=== PATIENT | female | born 1945 | race Two or more races ===

== ENCOUNTER 2025-01-19 18:38 | Emergency (ER) | payer SELFPAY, MEDICAID ==
[~2025-01-19] VITALS: Ht 152.4 cm; Wt 55.0 kg
--- NOTE | 2025-01-19 18:55 | ECG ---
[facility] Test Date: 2025-01-19 Test Time: 18:47:29 Pat Name: BRIAN HENRIQUEZ Department: Room: Gender: F Employee Benefits Administrator: DAVE : 1945 Requested By: VIPUL NGUYEN Order Number: [id number] Reading MD: Measurements Intervals Power Rate: 80 P: 63 [place]: 134 QRS: 19 QRSD: 91 T: 71 QT: 396 QTc: 457 Interpretive Statements Sinus rhythm Low voltage, precordial leads Please click the below link to view image of tracing.
--- NOTE | 2025-01-19 19:24 | ED.PDOC ---
GI ASSESSMENT HPI Comments HPI: Lauro 79 y.o female accompanied by daughter in law, presents to the ED for a chief complaint of diffused abdominal pain associated with nausea and vomiting that started 2 weeks ago. Patient reports pain is constant and has no alleviating or precipitating factors. Patient states recently being placed on jardiance due to hx of DM. Patient denies any diarrhea, fever, chills, chest pain, SOB. Vitals Temp: 98.3F HR: 79 BP: 135/68 RR: 16 SPO2: 98% RA Past Medical history: Acid reflux, hiatal hernia Past Surgical history: hernia repair and cholecystectomy Social History: Denies smoking, ETOH, and drug use. Allergies: NKA HPI: Poor Historian. REVIEW OF SYSTEMS: CONSTITUTIONAL: Denies acute: fever, diaphoresis, chills, HEAD: Denies acute: headache, photophobia Eyes: Denies acute: Double vision, vision loss, eye pain, eye discharge. EARS: Denies acute: tinnitus, hearing loss, ear discharge, ear pain, THROAT: Denies acute: sore throat, swelling, difficulty swallowing , pain with swallowing, change in voice. NECK: Denies acute: neck pain, neck swelling, stiff neck. HEART: Denies acute : chest pain, palpitations, LUNGS: Denies acute: SOB, wheezing, cough, hemoptysis ABDOMEN: Denies acute: diarrhea, melena , hematemesis, hematochezia SKIN: Denies acute: rash, redness, lesions, itchiness. EXTREMITIES: Denies acute: calf pain, numbness, tingling, weakness, denies pain in extremity. Denies acute: Low back pain. Neuro: Denies acute: focal neurological deficit, motor or sensory focal neurological deficit, tremors, seizure like activity, confusion, dizziness, change in mental status, loss of bowel or bladder function, cauda equina like symptoms. : Denies acute: dysuria, hematuria, flank pain, increase in urinary frequency. PSYCH: Denies acute: hallucination, suicidal ideation, homicidal ideation. FEMALE: Denies acute: abnormal vaginal bleeding, foul odor, unusual discharge. PHYSICAL EXAM: General: -----mild---acute distress, awake and alert. Head: normocephalic, atraumatic. Neck: supple, trachea is midline, no swelling. Throat: Normal phonation. Eyes:, no erythema, no purulent discharge, no proptosis, no icterus. Heart: regular rate, regular rhythm, no significant murmur appreciated. Lungs: no apparent respiratory distress, Able to speak in full sentences. No wheezing, no rhonchi, no crackles. No stridors Clear to auscultation bilaterally. Abdomen: Nonspecific mild upper abdominal tender to palpation, non distended, soft, no guarding, no rebound, + bowel sounds. Neuro: Awake, Alert, oriented to name, self, situation, follows commands GCS=15. Speech is normal. Skin: no petechia, no purpura, no cyanosis, non-pale, not jaundice. Lower extremities: --no - Pitting edema no deformity, no focal swelling, no calf TTP. Makes eye contact. moves all four extremities. Face: no apparent facial droop. Ambulating in the ED independently. ED COURSE: DISCLAIMER: This medical document was created using an electronic medical record system with voice recognition software and computerized dictation system. Although this document has been carefully reviewed, there might still be some phonetic and typographical errors. Occasional wrong-word or "sound-alike" substitutions may have occurred due to the inherent limitations of voice recognition software. These areas are purely typographical due to imperfections of the software [employer] and do not reflect any compromise in the patient's medical care. Please read the chart carefully and recognize, using context, where these substitutions have occurred. 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 Was a procedure done?: No GI differential Dx Differential Diagnosis: Esophagitis, Gastritis/PUD, Gastroenteritis, Inflammatory BD, Viral X-Ray, Labs, Meds, VS Vital Signs Date Time Temp Pulse Resp B/P (MAP) Pulse Ox O2 Delivery O2 Flow Rate FiO2 01/19/25 18:47 80 01/19/25 18:40 98.3 79 16 135/68 98 98.3 Lab Test 01/19/25 20:01 01/19/25 19:37 Range/Units Urine Color Light-yellow Yellow Urine Clarity Clear Clear Urine pH 6.5 5.0-9.0 Urine Specific [place] 1.012 1.001-1.035 Urine Protein Negative Negative Urine Ketones Negative Negative Urine Blood Negative Negative /uL Urine Nitrite Negative Negative Urine Bilirubin Negative Negative Urine Urobilinogen Normal Negative mg/dL Urine Leukocyte Esterase 2+ Negative /uL Urine RBC 1 0 - 4 /hpf Urine Microscopic WBC 4 0-5 /HPF Urine Squamous Epithelial Cells Few <5 /hpf Urine Bacteria None seen None Seen /hpf Urine Glucose 4+ H Normal mg/dL White Blood Count 5.0 4.4-10.8 10^3/uL Red Blood Count 4.90 4.0-5.20 10^6/uL Hemoglobin 15.4 12.2-16.2 g/dL Hematocrit 44.8 36.0-46.0 % Mean Corpuscular Volume 91.4 80.0-100.0 fL Mean Corpuscular Hemoglobin 31.5 28.0-32.0 pg Mean Corpuscular Hemoglobin Concent 34.4 32.0-36.0 g/dL Red Cell Distribution Width 12.9 11.8-14.3 % Platelet Count 178 140-450 10^3/uL Mean Platelet Volume 8.7 6.9-10.8 fL Neutrophils (%) (Auto) 49.8 37.0-80.0 % Lymphocytes (%) (Auto) 39.4 10.0-50.0 % Monocytes (%) (Auto) 7.0 0.0-12.0 % Eosinophils (%) (Auto) 2.8 0.0-7.0 % Basophils (%) (Auto) 1.0 0.0-2.0 % Neutrophils # (Auto) 2.5 1.6-8.6 10 ^3/uL Lymphocytes # (Auto) 2.0 0.4-5.4 10 ^3/uL Monocytes # (Auto) 0.3 0-1.3 10 ^3/uL Eosinophils # (Auto) 0.1 0-0.8 10 ^3/uL Basophils # (Auto) 0 0-0.2 10 ^3/uL Nucleated Red Blood Cells 0.1 % Sodium Level 140 136-145 mmol/L Potassium Level 3.7 3.5-5.1 mmol/L Chloride Level 105 98-107 mmol/L Carbon Dioxide Level 26 20-31 mmol/L Anion Gap 9 5-15 Blood Urea Nitrogen 14 9-23 mg/dL Creatinine 0.74 0.550-1.02 mg/dL Glomerular Filtration Rate Calc 83 >90 mL/min BUN/Creatinine Ratio 18.9 10.0-20.0 Serum Glucose 209 H 74-106 mg/dL Lactic Acid Level 1.4 0.4-2.0 mmol/L Calcium Level 8.6 L 8.7-10.4 mg/dL Total Bilirubin 0.4 0.2-1.0 mg/dL Aspartate Amino Transferase (AST) 18 13-40 U/L Alanine Aminotransferase (ALT) 15 7-40 U/L Alkaline Phosphatase 95 46-116 U/L Troponin I High Sensitivity < 3 L </=34 ng/L Total Protein 6.4 5.7-8.2 g/dL Albumin 4.2 3.2-4.8 g/dL Lipase 38 12-53 U/L [place] [address] Ph: [phone] DIAGNOSTIC IMAGING Diagnostic Imaging Report : [id number] Signed PATIENT: BRIAN HENRIQUEZ ACCT: [id number] UNIT: [id number] : 1945 LOC: ER ROOM / BED: / AGE / SEX: 79 / F ADM STATUS: REG ER SERVICE [id number] ORDERING PHYSICIAN: TERENCE KEANE DO PROCEDURE(s): ABPL - CT AB PEL WO CON-NO ORAL OR IV REASON: abd pain n/v ORDER NUMBER(s): [id number], ACCESSION NUMBER(s): [id number] Exam: CT CT AB PEL WO CON-NO ORAL OR IV History: abd pain n/v Comparison Study: None Technique: Multidetector spiral CT of the abdomen was performed from lung bases to pubic symphysis. Imaging was performed without IV contrast. Axial, coronal and sagittal multiplanar reformats were obtained from the axial data set by the technologist. Radiation dose : 1. Abdomen/Pelvis: CTDIvol 5.49 mGy, DLP 5.49 mGy*cm. Findings: Evaluation of solid organs is limited due to lack of intravenous contrast use. There is bronchial thickening. 5.1 cm caudate cyst. Status post cholecystectomy. The pancreas, spleen, adrenal glands, and kidneys are within normal limits. Uterus and adnexa are unremarkable. The stomach and small bowel within normal limits. The appendix is not visualized.: The colon is unremarkable. Minimal atherosclerotic calcifications. Mild sacroiliac joint degenerative change. Minimal degenerative changes within the lumbar spine. IMPRESSION: 1. No acute abdominal or pelvic findings. 2. 5.1 cm caudate lobe hepatic cyst Radiation optimization: All CT scans at this facility use at least one of these dose optimization techniques: automated exposure control mA and/or kV adjustment per patient size (includes targeted exams where dose is matched to clinical indication) or iterative reconstruction. ATED BY: SHRAVAN ZAMUDIO MD DICTATED DATE/TIME: 01/19/251954 SIGNED BY: SHRAVAN ZAMUDIO MD SIGNED DATE/TIME: 01/19/251954 CC: Time of 1ST Reevaluation: 19:10 Reevaluation 1ST: Unchanged Patient Education/Counseling: Diagnosis, Treatment Family Education/Counseling: Diagnosis, Treatment Departure 1 Departure Time of Disposition: 20:48 Impression: Primary Impression: Abdominal pain Additional Impressions: Medication adverse effect UTI (urinary tract infection) Hepatic cyst Disposition: 01 HOME / SELF CARE / HOMELESS Condition: Stable Additional Instructions: Additional instructions: You MUST follow-up with your primary care/family doctor in 1 to 2 days. If you are unable to see your primary care/family doctor, please return to our emergency room for re-assessment and re-evaluation in 1 to 2 days. Return to the emergency room here in our facility or to the nearest ER [facility] if your symptoms change or worsen. CONSULTATIONS: you MUST Follow-up for consultation as soon as possible with: -gastroenterology and endocrinology in 1-2 days. Please call for appointment. You MUST call the consultants office yourself to make an appointment. You may need to arrange that through your insurance and/or your primary/family doctor. If you are unable to see the travel sales consultant in 1 to 2 days, you must return to our emergency room (or any other ER of your choice) for re-assessment and re- evaluation. Adequate fluid hydration. Avoid fatty greasy spicy food. Avoid caffeinated products. Avoid NSAIDs. Below is a copy of your radiological report for follow up: [place] [address] Ph: [phone] DIAGNOSTIC IMAGING Diagnostic Imaging Report : [id number] Signed PATIENT: BRIAN HENRIQUEZ ACCT: [id number] UNIT: [id number] : 1945 LOC: ER ROOM / BED: / AGE / SEX: 79 / F ADM STATUS: REG ER SERVICE 57 ORDERING PHYSICIAN: TERENCE KEANE DO PROCEDURE(s): ABPL - CT AB PEL WO CON-NO ORAL OR IV REASON: abd pain n/v ORDER NUMBER(s): [id number], ACCESSION NUMBER(s): [id number] Exam: CT CT AB PEL WO CON-NO ORAL OR IV History: abd pain n/v Comparison Study: None Technique: Multidetector spiral CT of the abdomen was performed from lung bases to pubic symphysis. Imaging was performed without IV contrast. Axial, coronal and sagittal multiplanar reformats were obtained from the axial data set by the technologist. Radiation dose : 1. Abdomen/Pelvis: CTDIvol 5.49 mGy, DLP 5.49 mGy*cm. Findings: Evaluation of solid organs is limited due to lack of intravenous contrast use. There is bronchial thickening. 5.1 cm caudate cyst. Status post cholecystectomy. The pancreas, spleen, adrenal glands, and kidneys are within normal limits. Uterus and adnexa are unremarkable. The stomach and small bowel within normal limits. The appendix is not visualized.: The colon is unremarkable. Minimal atherosclerotic calcifications. Mild sacroiliac joint degenerative change. Minimal degenerative changes within the lumbar spine. IMPRESSION: 1. No acute abdominal or pelvic findings. 2. 5.1 cm caudate lobe hepatic cyst Radiation optimization: All CT scans at this facility use at least one of these dose optimization techniques: automated exposure control mA and/or kV adjustment per patient size (includes targeted exams where dose is matched to clinical indication) or iterative reconstruction. ATED BY: SHRAVAN ZAMUDIO MD DICTATED DATE/TIME: 01/19/251954 SIGNED BY: SHRAVAN ZAMUDIO MD SIGNED DATE/TIME: 01/19/251954 CC: e-Prescriptions Ondansetron Odt 4MG Tab (ZOFRAN PO) 4 Mg Tb 4 MG PO Q8HPRN PRN for 3 Days, #9 TAB ODT TAB-DISSOLVE IN MOUTH, THEN SWALLOW Prov: TERENCE KEANE DO 01/19/25 Nitrofurantoin Monohydrate Mac (Macrobid) 100 Mg Cap 100 MG PO BID for 7 Days, #14 CAP Prov: TERENCE KEANE DO 01/19/25 Discharged With: Self Critical Care Note Critical Care Time?: No I personally scribed for TERENCE KEANE DO ([email or web address]) on 01/19/25 at 19:24. Electronically submitted by Arielle Smith ([facility]). I personally scribed for TERENCE KEANE DO ([email or web address]) on 01/19/25 at 20:18. Electronically submitted by Arielle Smith ([facility]). I personally scribed for TERENCE KEANE DO ([email or web address]) on 01/19/25 at 20:57. Electronically submitted by Arielle Smith ([facility]). TERENCE KEANE DO Jan 19, 2025 19:24
[2025-01-19 19:48] LABS: Hematocrit 44.8 % (36.0-46.0); Hemoglobin 15.4 g/dL (12.2-16.2); Mean Corpuscular Hemoglobin 31.5 pg (28.0-32.0); Mean Corpuscular Volume 91.4 fL (80.0-100.0); Nucleated Red Blood Cells % 0.1 %
--- NOTE | 2025-01-19 19:57 | DVH ---
Exam: CT CT AB PEL WO CON-NO ORAL OR IV History: abd pain n/v Comparison Study: None Technique: Multidetector spiral CT of the abdomen was performed from lung bases to pubic symphysis. Imaging was performed without IV contrast. Axial, coronal and sagittal multiplanar reformats were ob tained from the axial data set by the technologist. Radiation dose : 1. Abdomen/Pelvis: CTDIvol 5.49 mGy, DLP 5.49 mGy*cm. Findings: Evaluation of solid organs is limited due to lack of intravenous contrast use. There is bronchial thickening. 5.1 cm caudate cyst. Status post cholecystectomy. The pancreas, spleen, adrenal glands, and kidneys are within normal limits. Uterus and adnexa are unr emarkable. The stomach and small bowel within normal limits. The appendix is not visualized.: The colon is unrem arkable. Minimal atherosclerotic calcifications. Mild sacroiliac joint degenerative change. Minimal degenerati ve changes within the lumbar spine. IMPRESSION: 1. No acute abdominal or pelvic findings. 2. 5.1 cm caudate lobe hepatic cyst Radiation optimization: All CT scans at this facility use at least one of these dose optimization sarah hniques: automated exposure control mA and/or kV adjustment per patient size (includes targeted exam s where dose is matched to clinical indication) or iterative reconstruction.
[2025-01-19 20:14] LABS: Alanine Aminotransferase 15 U/L (7-40); Albumin 4.2 g/dL (3.2-4.8); Alkaline Phosphatase 95 U/L (46-116); Anion Gap 9 (5-15); BUN/Creatinine Ratio 18.9 (10.0-20.0); Bilirubin, Total 0.4 mg/dL (0.2-1.0); Blood Urea Nitrogen 14 mg/dL (9-23); Carbon Dioxide 26 mmol/L (20-31); Chloride 105 mmol/L (98-107); Lipase 38 U/L (12-53); Potassium 3.7 mmol/L (3.5-5.1); Sodium 140 mmol/L (136-145); Total Protein 6.4 g/dL (5.7-8.2)
[2025-01-19 20:16] LABS: Urine Protein, UAD Negative (Negative)
[2025-01-19 20:21] LABS: Calcium 8.6 mg/dL (8.7-10.4); Glucose 209 mg/dL (74-106)
[2025-01-19] MEDS ORDERED: ZOFR4T PO (21:10)
[2025-01-19] MEDS ORDERED: NITR-87 PO (21:10)
[2025-01-20] MEDS: PANTOPRAZOLE 40 MG TAB PO ONE (01:50)
[2025-01-20] MEDS: SUCRALFATE 1 GM TAB PO ONE (01:50)
[2025-01-20] MEDS: LIDOCAINE VISCOUS 2% 15ML UD PO ONE (01:50)
[2025-01-20 01:53] VITALS: BP 142/72; PULSE 58; RESP 16; TEMP 97.6; O2SAT 95
[2025-01-20] MEDS: cefTRIAXone 1GM/50ML D5W 50 ML IV ONE (02:02)
== END 2025-01-20 02:15 | disposition home or self-care (01) ==
LOC: ER 18:54
DX: N39.0 Urinary tract infection, site not specified (principal); R10.84 Generalized abdominal pain; T50.905A Adverse effect of unspecified drugs, medicaments and biological substances, initial encounter; E11.9 Type 2 diabetes mellitus without complications; K76.89 Other specified diseases of liver; Z98.890 Other specified postprocedural states; Z90.49 Acquired absence of other specified parts of digestive tract; Y92.89 Other specified places as the place of occurrence of the external cause
CPT/HCPCS: 36415; 74176; 80053; 81001; 83605; 83690; 84484; 85025; 93005; 96374; 99285; J0696